=== PATIENT | male | born 1985 | race Two or more races ===

== ENCOUNTER 2021-10-06 15:02 | Emergency (ER) | payer OTHER ==
[~2021-10-06] VITALS: Ht 167.6 cm; Wt 77.1 kg
[2021-10-06 15:44] VITALS: BP 154/85
== END 2021-10-06 17:52 | disposition left against medical advice (07) ==
LOC: ER 15:02 → EDBD 15:02 → ER 17:52
DX: S00.11XA Contusion of right eyelid and periocular area, initial encounter (principal); H11.33 Conjunctival hemorrhage, bilateral; H05.231 Hemorrhage of right orbit; Z59.00 Homelessness unspecified; Z53.29 Procedure and treatment not carried out because of patient's decision for other reasons; W19.XXXA Unspecified fall, initial encounter; Y93.89 Activity, other specified; Y92.89 Other specified places as the place of occurrence of the external cause; Y99.8 Other external cause status